=== PATIENT | female | born 1945 | race Caucasian/White ===

== ENCOUNTER → 2021-08-22 | Outpatient (CLI) | payer MEDICARE ==
[2021-08-22 12:53] LABS: ALBUMIN 3.6 g/dL (3.5-5.0); BILIRUBIN,TOTAL 0.3 mg/dL (0.2-1.0); CREATININE 0.8 mg/dL (0.5-1.5); POTASSIUM 4.7 mmol/L (3.5-5.1); TOTAL PROTEIN, SERUM 6.6 g/dL (6.0-8.3)
== END | disposition home or self-care (01) ==
LOC: LAB 09:06
PROVIDERS: ATTEND Student in an Organized Health Care Education/Training Program
DX: I10 Essential (primary) hypertension (principal)
CPT/HCPCS: 36415; 80053

== ENCOUNTER → 2021-08-29 | Outpatient (CLI) | payer MEDICARE ==
[~2021-08-29] MED LIST: IOHEXOL 350 MG/ML 100ML INFUS..BTL IV ONE; METOPROLOL TARTRATE 1 MG/ML 5ML VIAL IV ONE
== END | disposition home or self-care (01) ==
LOC: RAH 08:55 → EDUNIT# 09:00
PROVIDERS: ATTEND Student in an Organized Health Care Education/Training Program
DX: I25.10 Atherosclerotic heart disease of native coronary artery without angina pectoris (principal); I10 Essential (primary) hypertension
CPT/HCPCS: 75574; J3490; Q9967

== ENCOUNTER → 2022-08-06 | Outpatient (CLI) | payer MEDICARE | END | disposition home or self-care (01) | LOC: RAH 09:38 | PROVIDERS: ATTEND Nurse Practitioner Adult Health | DX: M16.11 Unilateral primary osteoarthritis, right hip (principal) | CPT/HCPCS: 73502 ==

== ENCOUNTER → 2022-11-10 | Outpatient (CLI) | payer MEDICARE | END | disposition home or self-care (01) | LOC: OIH 11:29 | PROVIDERS: ATTEND Nurse Practitioner Adult Health | DX: Z01.818 Encounter for other preprocedural examination (principal); M47.815 Spondylosis without myelopathy or radiculopathy, thoracolumbar region; M41.84 Other forms of scoliosis, thoracic region; Z96.641 Presence of right artificial hip joint | CPT/HCPCS: 71046 ==